=== PATIENT | female | born 1970 | race Caucasian/White ===

== ENCOUNTER 2019-10-31 15:54 | Emergency (ER) | payer OTHER ==
[2019-10-31 15:58] VITALS: BP 138/83; PULSE 97; TEMP 98; BMI 24.7
--- NOTE | 2019-10-31 15:58 | PDOC ---
Rapid Medical Evaluation Time Seen by Provider: 10/31/19 15:57 Medical Evaluation: Allergies Allergy/AdvReac Type Severity Reaction Status Date / Time No Known Drug Allergies Allergy Verified 06/02/16 13:01 10/31/19 15:57 Pt c/o: runny nose, sinus pressure, no headache or fever Pt on brief exam: vss, no frontal tenderness pt ordered for: none pt to proceed to the ED Discharge Disposition - Diagnosis Sinus pressure - Referrals - Patient Instructions - Post Discharge Activity
--- NOTE | 2019-10-31 17:23 | PDOC ---
History of Present Illness - General Chief Complaint: Cold Symptoms Stated Complaint: ALLERGIES Time Seen by Provider: 10/31/19 15:57 - History of Present Illness Initial Comments: 10/31/19 17:20 48-year-old female without comorbidities presents for nasal congestion without systemic symptoms x1 month no facial pain Past History - Past Medical History Allergies/Adverse Reactions: Allergies Allergy/AdvReac Type Severity Reaction Status Date / Time No Known Drug Allergies Allergy Verified 10/31/19 15:58 Home Medications: Ambulatory Orders Tramadol HCl 50 mg PO QID PRN #20 tablet MDD 4 06/02/16 Budesonide [Rhinocort Allergy] 1 spray NS ONCE #1 spray.pump 10/31/19 COPD: No - Psycho Social/Smoking Cessation Hx Smoking History: Never smoked Have you smoked in the past 12 months: No Hx Alcohol Use: No Drug/Substance Use Hx: No Substance Use Type: None Review of Systems - Review of Systems Constitutional: No: Fever HEENTM: Yes: Nose Congestion Respiratory: No: Cough *Physical Exam - Vital Signs Last Vital Signs Temp Pulse Resp BP Pulse Ox 98 F 97 H 18 138/83 98 10/31/19 15:55 10/31/19 15:55 10/31/19 15:55 10/31/19 15:55 10/31/19 15:55 - Physical Exam 10/31/19 17:20 GENERAL: The patient is awake, alert, and fully oriented, in no acute distress. HEAD: Normal with no signs of trauma. EYES: sclera anicteric, conjunctiva clear. ENT: Ears normal tympanic membranes normal oropharynx clear uvula midline no nasal turbinate injection no maxillary or frontal sinus tenderness NECK: Normal range of motion LUNGS: Breath sounds equal, clear to auscultation bilaterally. No wheezes, and no crackles. HEART: S1 and S2 without murmur, rub or gallop. ABDOMEN: Soft, nontender, normoactive bowel sounds. No guarding, no rebound. No masses. EXTREMITIES: Normal range of motion, no edema. No clubbing or cyanosis. No cords, erythema, or tenderness. NEUROLOGICAL: Cranial nerves II through XII grossly intact. PSYCH: Normal mood, normal affect. SKIN: Warm, Dry, normal turgor, no rashes or lesions noted. Medical Decision Making - Medical Decision Making 02/25/20 17:20 Supportive care for allergic rhinitis Discharge - Discharge Information Problems reviewed: Yes Clinical Impression/Diagnosis: Allergic rhinitis Clinical Impression/Diagnosis: (Ruled Out): Sinus pressure Condition: Stable Disposition: HOME - Admission No - Follow up/Referral Referrals: ON STAFF,NOT [Primary Care Provider] - - Patient Discharge Instructions Additional Instructions: Please use the nasal spray as directed. Return to the emergency room for worsening symptoms. And without fail follow-up with your primary care physician in 1 to 2 days for further evaluation and treatment options. - Post Discharge Activity
== END 2019-10-31 17:40 | disposition home or self-care (01) ==
LOC: JERFT 15:54
DX: J30.9 Allergic rhinitis, unspecified (principal)
CPT/HCPCS: 99282-25